=== PATIENT | female | born 1960 | race Caucasian/White ===

== ENCOUNTER 2020-02-06 02:48 | Inpatient (IN) | payer BC, OTHER ==
[2020-02-06] VITALS (7 sets, daily range): BP systolic 102–140; BP diastolic 65–92; BMI 28.4
[~2020-02-06] VITALS: Ht 162.6 cm; Wt 74.8 kg
[2020-02-06] MEDS ORDERED: ULTRAM50 MG PO (02:57)
[2020-02-06] MEDS ORDERED: ESTRADIOL (02:57)
[2020-02-06] MEDS ORDERED: HUMERA (02:57)
[2020-02-06] MEDS ORDERED: CELEBREX (02:57)
[2020-02-06] MEDS ORDERED: VITAMIN (02:58)
[2020-02-06] MEDS ORDERED: OMEPRAZOLE (02:58)
[2020-02-06] MEDS ORDERED: VITAMIN D PO (02:58)
[2020-02-06] MEDS ORDERED: PROBIOTIC PO (02:58)
[2020-02-06] MEDS ORDERED: FISH OIL 1,0001 CA1 PO (02:58)
[2020-02-06 03:22] LABS: BASOPHILS 0.4 % (0-2); EOSINOPHILS 2.2 % (0-7); HEMATOCRIT 37.4 % (36.0-48.0); HEMOGLOBIN 12.2 g/dL (12-16); IMMATURE GRANULOCYTES 0.3 % (0-5); LYMPHOCYTES 29.7 % (15-50); MCH 28.8 pg (26.0-34.0); MCHC 32.6 g/dL (31.0-37.0); MCV 88.2 fL (80.0-100.0); MEAN PLATELET VOLUME 8.6 fL (7.4-10.4); MONOCYTES 5.5 % (2-11); NEUTROPHILS 61.9 % (40-80); PLATELET COUNT 316 10x3/uL (130-400); RBC 4.24 10x6/uL (4.00-5.40); RDW 13.7 % (11.5-14.5); WBC 11.2 10x3/uL (4.8-10.8)
[2020-02-06 03:31] LABS: CALC OSMOLALITY 275 mosm/kg (275-300); CALCIUM 9.2 mg/dL (8.5-10.1); CARBON DIOXIDE 28.7 mmol/L (21.0-32.0); CHLORIDE - SERUM 101 mmol/L (98-107); CREATININE - SERUM 1.2 mg/dL (0.6-1.3); GLUCOSE 102 mg/dL (74-106); POTASSIUM - SERUM 3.5 mmol/L (3.5-5.1); SODIUM 137 mmol/L (136-145); UREA NITROGEN 18 mg/dL (7-18); eGFR NON AFRICAN AMERICAN 49 mL/min (90-120)
[2020-02-06 03:39] LABS: ALKALINE PHOSPHATASE 85 U/L (30-120); ALT (SGPT) 18 U/L (10-68); AMYLASE - SERUM 35 U/L (25-115); BILIRUBIN - TOTAL 0.24 mg/dL (0.2-1.3); C-REACTIVE PROTEIN 0.8 mg/dL (0.0-0.9); LIPASE 71 U/L (73-393); PROTEIN - SERUM 7.3 g/dL (6.4-8.2); TROPONIN-I < 0.017 ng/mL (0.000-0.060)
[2020-02-06 04:58] LABS: BILIRUBIN NEGATIVE (NEGATIVE); GLUCOSE NEGATIVE (NEGATIVE); KETONE NEGATIVE (NEGATIVE); NITRITE NEGATIVE (NEGATIVE); UROBILINOGEN NORMAL (NORMAL)
--- NOTE | 2020-02-06 05:16 | NUR ---
PT BACK FROM CT AT THIS TIME. PT VOMIED APPROX 200ML EMESIS AT THIS TIME. INFORMED SEE EMAR.
[2020-02-06] MEDS ORDERED: CELEBREX200 MG PO (07:45)
[2020-02-06] MEDS ORDERED: ESTRACE2 MG PO (07:46)
[2020-02-06] MEDS ORDERED: OMEPRAZOLE20 M1 PO (07:47)
[2020-02-06] MEDS ORDERED: PROBIOTIC BLEN1 EACH PO (07:48)
[2020-02-06] MEDS ORDERED: VITAMIN D1000 UNIT PO (07:49)
[2020-02-06] MEDS ORDERED: TRAMADOL HCL E200 M1 (07:49)
--- NOTE | 2020-02-06 08:00 | NUR ---
PATIENT RECEIVED TO ROOM AND ORIENTED TO ROOM. BOWEL SOUNDS HYPERACTIVE X4 WITH ABDOMINAL DISTENSION NOTED AND GAURDED. IVF INFUSING TO LEFT F/A. DEMEROL AND ZOFRAN GIVEN FOR PAIN AND NAUSEA AND EFFECTIVE. [id number] TO USE CALL LIGHT FOR ASSIST.
[2020-02-06] MEDS ORDERED: PREDNISONE10 MG PO (10:28)
[2020-02-06] MEDS ORDERED: BACLOFEN10 MG PO (10:29)
[2020-02-06] MEDS ORDERED: ZANAFLEX2 M1 PO (10:30)
--- NOTE | 2020-02-06 18:39 | NUR ---
N/G TUBE PLACED TO LEFT NARE WITH PLACEMEENT VERIFIED. LOW INTERMTTANT SUCTION APPLIED AT THIS TIME. WITH HOB AT 45 DEGREE ANGLE.
--- NOTE | 2020-02-06 21:59 | NUR ---
PATIENT STATES SHE BEGAN TO THROW UP AND THAT HER NGT CAME OUT. PATIENT VERY ADAMANT THAT SHE WILL NOT PUT THE NGT BACK IN UNLESS SEDATED. PROVIDED EDUCATION TO PATIENT OF IMPORTANCE OF DEPCOMPRESSION FOR SBO. PATIENT REFUSED. UPSET. SPOKE WITH ANDREW DIXON APRN AND HE STATED THAT IF SHE REFUSES TO ORDER KUB IN THE MORNING AND REEVALUATE SBO THEN.
--- NOTE | 2020-02-06 23:21 | NUR ---
FIRST UNIT OF BLOOD INITIATED. NO SIGNS OR SYMPTOMS OF DISTRESS. CPOC.
[2020-02-07] VITALS: BP 136/82
--- NOTE | 2020-02-07 01:05 | NUR ---
PATIENT HAS HAD TWO LOOSE BOWEL MOVEMENTS.
--- NOTE | 2020-02-07 03:51 | NUR ---
PATIENT STATES SHE FEELS MUCH BETTER AND THAT HER BOWELS HAVE MOVED A TOTAL OF 3 TIMES THIS SHIFT. DENIES FURTHER NEEDS AT THIS TIME. CPOC.
[2020-02-07 04:00] VITALS: BP 136/86
[2020-02-07 05:42] LABS: BASOPHILS 0.1 % (0-2); EOSINOPHILS 1.7 % (0-7); HEMATOCRIT 38.8 % (36.0-48.0); HEMOGLOBIN 12.6 g/dL (12-16); IMMATURE GRANULOCYTES 0.3 % (0-5); LYMPHOCYTES 23.5 % (15-50); MCH 29.1 pg (26.0-34.0); MCHC 32.5 g/dL (31.0-37.0); MCV 89.6 fL (80.0-100.0); MEAN PLATELET VOLUME 9.2 fL (7.4-10.4); MONOCYTES 10.5 % (2-11); NEUTROPHILS 63.9 % (40-80); RBC 4.33 10x6/uL (4.00-5.40); RDW 14.3 % (11.5-14.5)
[2020-02-07 05:53] LABS: INR 1.09 (0.85-1.17)
[2020-02-07 05:54] LABS: PLATELET COUNT 421 10x3/uL (130-400); WBC 14.2 10x3/uL (4.8-10.8)
[2020-02-07 06:02] LABS: ALBUMIN 2.8 g/dL (3.4-5.0); ANION GAP 10.4 mmol/L (8-16); BILIRUBIN - TOTAL 0.46 mg/dL (0.2-1.3); CALCIUM 8.4 mg/dL (8.5-10.1); CARBON DIOXIDE 28.8 mmol/L (21.0-32.0); CREATININE - SERUM 1.2 mg/dL (0.6-1.3); POTASSIUM - SERUM 3.2 mmol/L (3.5-5.1); PROTEIN - SERUM 7.3 g/dL (6.4-8.2)
[2020-02-07 06:43] LABS: MAGNESIUM - SERUM 1.6 mg/dL (1.8-2.4); PHOSPHOROUS 2.3 mg/dL (2.5-4.9)
--- NOTE | 2020-02-07 07:10 | NUR ---
PT REFUSED SMALL BOWEL FOLLOW THROUGH UNTIL DR REID COMES TO TALK TO HER, SPOKE TO DR REID STATED HE WOULD BE HERE WHEN HE CAN, PT A&O, DENIES NEEDS AT THIS TIME, BREATHING EVEN UNLABORED, CALL LIGHT IN REACH, AT BEDSIDE, PT STATES SHE HAS HAD 2 MORE BMS THIS AM AND THE PAIN IS ONLY IN HER LOWER ABDOMEN NOW
[2020-02-07 08:00] VITALS: BP 119/83
--- NOTE | 2020-02-07 10:37 | NUR ---
PT IV TO LFA TENDER, REMOVED IV TIP INTACT, IV REPLACED TO RFA ONE STICK 20G
[2020-02-07 11:00] VITALS: BP 131/83
[2020-02-07 12:30] VITALS: Ht 162.6 cm; Wt 74.8 kg
--- NOTE | 2020-02-07 16:13 | NUR ---
DC INSTRUCTIONS GIVEN QUESTIONS ANSWERED, IV REMOVED FROM RFA TIP INTACT, DISCHARGED WITH BELONGINGS PER WC
== END 2020-02-07 16:14 | disposition home or self-care (01) | DRG 389 ==
LOC: D.ER 02:48 → D.MS 06:14
PROVIDERS: Family Medicine; ADMIT Emergency Medicine; ATTEND Emergency Medicine
PROC: 0D9670Z Drainage of Stomach with Drainage Device, Via Natural or Artificial Opening (ICD-10-PCS; principal; 2020-02-06)
DX: K56.51 Intestinal adhesions [bands], with partial obstruction (principal); E87.2 Acidosis; E86.0 Dehydration